=== PATIENT | female | born 1965 | race Caucasian/White ===

== ENCOUNTER 2020-02-19 20:11 | Emergency (ER) | payer SELFPAY ==
[~2020-02-19] VITALS: Ht 167.6 cm; Wt 56.7 kg
[~2020-02-19 20:11] MED LIST: FLEXERIL10 MG PO; NAPROSYN500 MG PO; TRAMADOL HCL50 MG PO; VICODIN 5/500 505 MG PO
== END 2020-02-19 22:33 | disposition home or self-care (01) ==
LOC: ED 20:11
DX: J68.0 Bronchitis and pneumonitis due to chemicals, gases, fumes and vapors (principal); Z88.6 Allergy status to analgesic agent; Z79.899 Other long term (current) drug therapy

== ENCOUNTER → 2020-06-21 | Outpatient (CLI) | payer OTHER | END | disposition home or self-care (01) | LOC: RAD 16:28 | PROVIDERS: ATTEND Family Medicine | DX: S60.032A Contusion of left middle finger without damage to nail, initial encounter (principal); X58.XXXA Exposure to other specified factors, initial encounter; Y93.89 Activity, other specified; Y92.89 Other specified places as the place of occurrence of the external cause; Y99.8 Other external cause status ==

== ENCOUNTER 2021-05-08 01:15 | Emergency (ER) | payer OTHER ==
[~2021-05-08] VITALS: Ht 165.1 cm; Wt 59.0 kg
[2021-05-08] MEDS ORDERED: AMOXICILLIN500 M2 PO (03:27)
== END 2021-05-08 04:13 | disposition home or self-care (01) ==
LOC: ED 01:15
DX: K04.7 Periapical abscess without sinus (principal); Z79.899 Other long term (current) drug therapy; F17.200 Nicotine dependence, unspecified, uncomplicated

== ENCOUNTER → 2021-05-27 | Outpatient (CLI) | payer OTHER ==
[~2021-05-27] MED LIST changes: +AMOXICILLIN500 M2 PO
== END | disposition home or self-care (01) ==
LOC: MRI 10:31
PROVIDERS: ATTEND Specialist
DX: G44.40 Drug-induced headache, not elsewhere classified, not intractable (principal)

== ENCOUNTER 2022-02-02 21:04 | Emergency (ER) | payer MEDICARE, MEDICAID ==
[~2022-02-02] VITALS: Ht 165.1 cm; Wt 61.2 kg
== END 2022-02-02 23:30 | disposition home or self-care (01) ==
LOC: ED 21:04
DX: G43.909 Migraine, unspecified, not intractable, without status migrainosus (principal); Z88.8 Allergy status to other drugs, medicaments and biological substances; Z98.51 Tubal ligation status; Z79.899 Other long term (current) drug therapy

== ENCOUNTER 2022-02-11 17:30 | Emergency (ER) | payer MEDICARE, MEDICAID ==
[~2022-02-11] VITALS: Wt 59.0 kg
[2022-02-11] MEDS ORDERED: TRAZODONE100 MG PO (17:49)
[2022-02-11] MEDS ORDERED: DULOXETINE HCL30 MG PO (17:49)
[2022-02-11] MEDS ORDERED: ATARAX,VISTARIL10 MG PO (17:49)
[2022-02-11] MEDS ORDERED: TRINTELLIX20 MG PO (17:50)
[2022-02-11] MEDS ORDERED: METHOCARBAMOL750 M1 PO (20:06)
[2022-02-11] MEDS ORDERED: IBU800 MG PO (20:06)
== END 2022-02-11 20:25 | disposition home or self-care (01) ==
LOC: ED 17:30
DX: S29.011A Strain of muscle and tendon of front wall of thorax, initial encounter (principal); Z88.8 Allergy status to other drugs, medicaments and biological substances; Z79.899 Other long term (current) drug therapy; Z98.51 Tubal ligation status; F17.200 Nicotine dependence, unspecified, uncomplicated; W22.8XXA Striking against or struck by other objects, initial encounter; Y93.89 Activity, other specified; Y92.89 Other specified places as the place of occurrence of the external cause; Y99.8 Other external cause status

== ENCOUNTER 2022-02-15 15:31 | Emergency (ER) | payer MEDICARE, MEDICAID ==
[~2022-02-15 15:31] MED LIST changes: +ATARAX,VISTARIL10 MG PO; +DULOXETINE HCL30 MG PO; +IBU800 MG PO; +METHOCARBAMOL750 M1 PO; +TRAZODONE100 MG PO; +TRINTELLIX20 MG PO
== END 2022-02-15 18:21 | disposition home or self-care (01) ==
LOC: ED 15:31
DX: S20.211A Contusion of right front wall of thorax, initial encounter (principal); Z88.6 Allergy status to analgesic agent; Z79.899 Other long term (current) drug therapy; Z98.51 Tubal ligation status; Z98.890 Other specified postprocedural states; X50.1XXA Overexertion from prolonged static or awkward postures, initial encounter; Y93.E9 Activity, other interior property and clothing maintenance; Y92.89 Other specified places as the place of occurrence of the external cause; Y99.8 Other external cause status